=== PATIENT | female | born 1955 | race Caucasian/White ===

== ENCOUNTER 2018-07-05 09:00 | Inpatient (IN) | payer OTHER ==
[2018-07-02 16:47] VITALS: BMI 22.7
[~2018-07-05] VITALS: Ht 154.9 cm; Wt 52.5 kg
[2018-07-05] VITALS (22 sets, daily range): BP systolic 102–150; BP diastolic 59–86; PULSE 58–80; RESP 13–20; Ht 154.9 cm; Wt 52.5 kg
[~2018-07-05 09:00] MED LIST: ATOR10TA65; CEFAZOLIN 2 GM/50 ML (PMX) 50 ML IVPB ONE; OMEP20CA16 PO; SOD CHLORIDE 0.9% 1,000 ML IV SCH
[2018-07-05] MEDS ORDERED: LACT1CAP56 PO (09:42)
[2018-07-05] MEDS ORDERED: ACETAMINOPHEN 500 MG TAB PO STA (10:02)
--- NOTE | 2018-07-05 10:54 | PREAC ---
Date/Time of Note Date/Time of Note DATE: 07/05/18 TIME: 10:50 Anesthesia Eval and Record Evaluation Time Pre-Procedure Interview DATE: 07/05/18 TIME: 10:50 Age 63 Sex female NPO: 8 hrs Preoperative diagnosis L breast CA Planned procedure L modified radical breast mastectomy Past Medical History Past Medical History: Includes Cardio: Dyslipidemia Psych: Depression, Anxiety Surgery & Anesthesia Issues No known issue (colonoscopy, cholecystectomy) Meds Anticoagulation: No Beta Verito within 24 hr: No Reason Beta Verito not given: Pt. not on B-Verito Reported Medications Lactobacillus Combo No.11 (Probiotic) 1 Each Cap.sprink, 1 CAP PO DAILY, CAP 07/05/18 Discontinued Reported Medications Atorvastatin Calcium (Atorvastatin Calcium) 10 Mg Tab, TAB 09/13/13 Omeprazole* (Omeprazole*) 20 Mg Capsule.dr, 20 MG PO 09/13/13 Current Medications Sodium Chloride 1,000 ml @ 75 mls/hr [id number] IV Last administered on 07/05/18at 10:09; Admin Dose 75 MLS/HR; Start 07/05/18 at 09:00; Stop 07/05/18 at 22:19 Meds reviewed: Yes Allergies Coded Allergies: meloxicam (Verified Allergy, Severe, DIFFUCLTY SWALLOWING & BREATHING, 07/05/18) PER PT Allergies Reviewed: Yes Labs/Studies Labs Reviewed: Reviewed by anesthesiologist test: N/A Pre-procedure Exam Last vitals Vital Signs Date Temp Pulse Resp B/P (MAP) Pulse Ox O2 O2 Flow FiO2 Time Delivery Rate 07/05/18 97.3 69 18 119/66 98 Room Air 09:54 (83) Airway: Adequate mouth opening, Adequate thyromental dist Mallampati: Mallampati II Teeth: Abnormal (upper dentures *permanent* and can't be removed per pt, lower pre/molars missing) Lung: Normal Heart: Normal ASA Physical Status ASA physical status: 2 Emergency: None Planned Anesthetic General/MAC: LMA Pre-operative Attestations Prior to commencing anesthesia and surgery, the patient was re-evaluated, there was verification of: *The patient's identity *The results of appropriate recent lab work and preoperative vital signs *The above evaluation not changing prior to induction *Anesthetic plan, risk benefits, alternative and complications discussed with patient/family; questions answered; patient/family understands, accepts and wishes to proceed. AYUSH DIANA Jul 05, 2018 10:54
[2018-07-05] MEDS ORDERED: OXYCODONE/ACETAMINOPHEN (5/325) TAB PO PRN ×2 (11:00)
[2018-07-05] MEDS ORDERED: MEPERIDINE 25 MG INJ IV PRN (11:00)
[2018-07-05] MEDS ORDERED: FENTAnyl 50 MCG/ML VIAL IV PRN ×2 (11:00)
[2018-07-05] MEDS ORDERED: HYDROmorphONE 1 MG/5 ML IV SYRINGE IV PRN ×2 (11:00)
[2018-07-05] MEDS ORDERED: ONDANSETRON 4 MG INJ IV PRN ×2 (11:00→13:30)
[2018-07-05] MEDS ORDERED: ALBUTEROL 0.083% (NEB) 2.5 MG/3 ML AMP HHN PRN (11:00)
[2018-07-05] MEDS ORDERED: morphine (1 MG/ML) 10ML SYRINGE IV PRN ×2 (11:00)
[2018-07-05] MEDS ORDERED: LABETALOL HCL 20MG INJ IV PRN (11:00)
[2018-07-05] MEDS ORDERED: DIPHENHYDRAMINE 50 MG INJ IV PRN (11:00)
[2018-07-05] MEDS ORDERED: MIDAZOLAM 1 MG/ML 2 ML INJ ONE (12:05)
[2018-07-05] MEDS ORDERED: METOCLOPRAMIDE 10 MG INJ ONE (12:05)
[2018-07-05] MEDS ORDERED: CEFAZOLIN 1 GM INJ ONE (12:09)
[2018-07-05] MEDS ORDERED: FENTAnyl 50 MCG/ML VIAL ONE (12:09)
[2018-07-05] MEDS ORDERED: ONDANSETRON 4 MG INJ ONE (12:09)
[2018-07-05] MEDS ORDERED: PROPOFOL 20 ML ONE (12:09)
--- NOTE | 2018-07-05 13:07 | SIPON ---
Date/Time of Note Date/Time of Note DATE: 07/05/18 TIME: 13:06 Operative Report Preoperative Diagnosis Invasive cancer left breast Postoperative Diagnosis Same Operation/Procedure Performed Left modified radical mastectomy Surgeon see signature line portfolio assistant Dr Bingham Anesthesia: general Estimated blood loss: 10 - 50 ml's Transfusion Required none Specimen Left breast and axillary contents Grafts/Implants none Complications none LORAINE LONG MD Jul 05, 2018 13:07
[2018-07-05] MEDS ORDERED: morphine 2 MG INJ IV PRN (13:30)
[2018-07-05] MEDS ORDERED: ACETAMINOPHEN 1000MG/100ML IV 100 ML IVPB PRN (13:30)
--- NOTE | 2018-07-05 13:55 | OPR ---
DATE OF OPERATION: 07/05/2018 PREOPERATIVE DIAGNOSIS: Invasive cancer, left breast. POSTOPERATIVE DIAGNOSIS: Invasive cancer, left breast. OPERATION PERFORMED: Left modified radical mastectomy. ANESTHESIA: General. ANESTHESIOLOGIST: Camryn Hutchinson MD. SURGEON: Fran Davis MD HARMONICA MAKER: Pedro Malagon and registered nurse first montez Bueno. INDICATIONS FOR PROCEDURE: The patient is a 63-year-old female who noticed a firm mass in the latera l aspect of her left breast with overlying skin retraction. Workup revealed a poorly differentiated triple negative breast cancer. The patient was not interested in breast conservation surgery and req uested a modified radical mastectomy. She consented and was scheduled for surgery. DESCRIPTION OF PROCEDURE: The patient was brought to the operating theater, placed under general end otracheal tube anesthesia. The left breast and axillary region was prepped and draped in the usual s terile fashion. A planned elliptical incision widely around the nipple areolar complex and the porti on of the skin associated with the tumor was demarcated with marking pen. The incision was then khan ied out with 15 blade scalpel. Subcutaneous tissue was dissected with cautery. Skin edges were then elevated with Allis Benjamin clamps and skin flaps were created using cautery, first superiorly to the clavicle, then medially to sternal border, inferiorly to the inframammary fold and laterally until th e latissimus dorsi muscle was identified throughout its course. Mastectomy then took place from medi al to lateral using cautery at the border of the pectoralis major muscle, the pectoralis minor muscle was identified. Clavipectoral fascia was incised. There were some firm palpable lymph nodes noted, highly suspicious for metastatic disease. Therefore, Dr. Davis proceeded with a level 1, level 2 di ssection. This was accomplished primarily by using the LigaSure device. When adequate zena resecti on had taken place, final connective tissue attachments to the latissimus dorsi muscle were then fernandes sected with cautery. Specimen was removed, oriented and sent for permanent pathologic analysis. The wound was irrigated. Minimal bleeding was controlled with cautery. Two #10 flat Timoteo-Baker drai ns were then brought through the left mid axillary line. One was cut to size and laid within the axi lla, the other was cut to size and laid over the pectoralis major muscle. Both drains were secured i n place with 2-0 nylon sutures in the standard fashion. The skin was then reapproximated with multip le 4-0 Vicryl sutures in interrupted deep dermal fashion, followed by final skin approximation with s kin presley. The patient tolerated the procedure well. The estimated blood loss was approximately 4 0 mL. There were no complications. The patient was transported in stable condition to recovery room where circumferential compression dressing was applied. Dictated By: FRAN DAVIS MD TL/URI Conf#: [id number] DID#: [id number] CC: JALYN NICHOLS; PEDRO MALAGON MD;*EndCC*
[2018-07-05] MEDS: D5W-0.45 NACL + KCL 20 MEQ 1,000 ML IV SCH ×2 (16:34→21:08)
[2018-07-06] VITALS: BP 100/59; PULSE 70; RESP 18
[2018-07-06] MEDS: D5W-0.45 NACL + KCL 20 MEQ 1,000 ML IV SCH ×2 (00:22→13:08)
--- NOTE | 2018-07-06 00:52 | HP ---
DATE OF ADMISSION: 07/05/2018 CHIEF COMPLAINT AND HISTORY OF PRESENT ILLNESS: The patient is a 63-year-old female who noted a firm mass in the lateral aspect of the left breast with overlying skin reaction. The patient underwent s ubsequent workup including biopsy which revealed poorly differentiated triple negative breast cancer. The patient was brought into hospital today and underwent left modified radical mastectomy. The pa tient has significant postoperative pain and is being admitted for evaluation and management. The pa tient denies history of headache. No history of nausea, vomiting. No history of abdominal pain. No history of fever or chills. No history of focal weakness. No history of headache. REVIEW OF SYSTEMS: Other than postoperative pain, rest of review of systems is unremarkable. PAST SURGICAL HISTORY: The patient is status post open cholecystectomy in . FAMILY HISTORY: Mother had ovarian cancer. MEDICATIONS PRIOR TO ADMISSION: None. ALLERGIES: MELOXICAM. PHYSICAL EXAMINATION: GENERAL: Revealed the patient to be awake, alert, fairly oriented. VITAL SIGNS: Temperature 98.2, pulse 61, respirations 18, blood pressure 102/59, O2 saturation 97% o n room air. HEENT: Atraumatic, normocephalic. Conjunctivae and lids are normal. Oropharynx is clear. NECK: No mass. CHEST: Fairly clear. CARDIOVASCULAR: S1, S2 normal. No murmur. ABDOMEN: Soft, nondistended, nontender, no palpable mass or pulsatile mass. EXTREMITIES: No leg edema. Pedal pulses are palpable. SKIN: Without acute rash. NEUROLOGIC: The patient is awake, alert, fairly oriented with no gross focal deficit. LABORATORY DATA: Pending. IMPRESSION: Invasive cancer of left breast, status post left modified radical mastectomy. PLAN: The patient will be admitted on medical floor. The patient will be started on clear liquid di et. This will be advanced as tolerated. For pain control, the patient will be given Tylenol, morphi ne and for [place]. We will use SCD for DVT prophylaxis. Continue IV fluids. If the patient continue s to do well, she will be discharged home tomorrow. We will order CBC and complete metabolic panel. Dictated By: KAYLAN JETT/NTS Conf#: [id number] DID#: [id number] CC: LORAINE LONG MD;*EndCC*
[2018-07-06 04:00] VITALS: BP 92/50; PULSE 60; RESP 18
[2018-07-06 07:37] VITALS: BP 91/58; PULSE 63; RESP 16
--- NOTE | 2018-07-06 08:09 | PAC ---
Date/Time of Note Date/Time of Note DATE: 07/06/18 TIME: 08:09 Post-Anesthesia Notes Post-Anesthesia Note Last documented vital signs Vital Signs Date Temp Pulse Resp B/P (MAP) Pulse Ox O2 O2 Flow FiO2 Time Delivery Rate 07/06/18 98.4 63 16 91/58 (69) 96 Room Air 07:37 07/05/18 2.0 14:36 Activity: WNL Respiratory function: WNL Cardiovascular function: WNL Mental status: Baseline Pain reasonably controlled: Yes Hydration appropriate: Yes Nausea/Vomiting absent: No STEPHEN VASQUES MD Jul 06, 2018 08:09
[2018-07-06] MEDS: HYDROCODONE/APAP (5/325) TAB PO PRN ×2 (09:40→17:07)
[2018-07-06 14:32] VITALS: BP 103/65; PULSE 68; RESP 18
--- NOTE | 2018-07-06 15:34 | PN ---
DATE: 07/06/2018 Postop day #1 status post left breast modified radical mastectomy. SUBJECTIVE: No specific complaint. Patient has been under control for pain with p.o. medication. N o chills, no fever. OBJECTIVE: GENERAL: Alert, awake, oriented x3. VITAL SIGNS: Temperature maximum 98.4, heart rate 63, respiration 18, blood pressure 103/65, saturat ion 97% room air. LABORATORY DATA: Labs, electrolytes and hematology within normal limits. I's and O's: 2 Timoteo-Pr att drains in place. They have drained respectively, 70 and 15 mL from the time of operation I think 7:00 in the morning. The color is serosanguineous, slightly bloody. PLAN: The patient can be discharged home to follow up by Dr. Davis in his office as per schedule. A lso, instruction was given to the patient's daughter with the care of the Timoteo-Baker drains, how t o drain them, to measure them and the write them down on a piece of paper and when she goes to Dr. Juanita alejandra' office to take it with her, so they know how much have been draining. Dictated By: MAGY MALAGON MD PS/NTS Conf#: [id number] DID#: [id number]
--- NOTE | 2018-07-06 22:04 | DS ---
DATE OF ADMISSION: 07/05/2018 DATE OF DISCHARGE: 07/06/2018 DISCHARGE DIAGNOSIS: Invasive cancer of the left breast status post left modified radical mastectomy . FOLLOWUP: The patient is to follow up with Dr. Long as an outpatient. WILIAN drain care has been expla ined. DISCHARGE MEDICATION: Tylenol 650 q.6h. p.r.n. or Motrin 400 mg q.6h. p.r.n. REASON FOR ADMISSION: The patient is a 63-year-old female who was diagnosed with poorly differentiat ed left breast cancer which was triple negative. The patient was brought into the hospital yesterday and underwent a left modified radical mastectomy. The patient had significant postoperative pain an d was admitted for further evaluation and management. HOSPITAL COURSE: The patient was admitted with diagnosis of breast cancer status post surgery. The pain was controlled with Tylenol, [place] and IV morphine. The patient since this morning has been doi ng very well and has been ambulating. No reported nausea or vomiting. No reported shortness of cami th. No reported resting leg pain. PHYSICAL EXAMINATION: VITAL SIGNS: Temperature 98.1, pulse 68, respirations 18, blood pressure 103/65, O2 saturation 97% o n room air. HEENT: No eye discharge or redness. Conjunctivae are normal. Oropharynx is clear. NECK: No mass. CHEST: Fairly clear. CARDIOVASCULAR: S1 and S2 normal. No murmur. ABDOMEN: Soft, nondistended, nontender. EXTREMITIES: No leg edema. NEUROLOGIC: The patient is awake, alert, fairly oriented with no gross focal deficit. LABORATORY DATA: Labs done this morning, WBC 9, hemoglobin 13.4, platelet 296. Chem 18: Sodium 141 , potassium 4.1, BUN 5, creatinine 0.5. Liver enzymes unremarkable. CONDITION ON DISCHARGE: Stable. DIET: Regular. Plan of care was discussed with the patient's family. Dictated By: KAYLAN JETT/NTS Conf#: [id number] DID#: [id number] CC: LORAINE LONG MD;*EndCC*
== END 2018-07-06 19:10 | disposition home or self-care (01) | DRG 583 ==
LOC: SDS 09:00 → REC 13:09 → MS1 15:25
PROVIDERS: ADMIT Surgery Surgical Oncology; ATTEND Surgery Surgical Oncology
PROC: 0HBU0ZZ Excision of Left Breast, Open Approach (ICD-10-PCS; principal; 2018-07-05 12:30)
DX: C50.912 Malignant neoplasm of unspecified site of left female breast (principal); E78.5 Hyperlipidemia, unspecified; F41.8 Other specified anxiety disorders; Z17.0 Estrogen receptor positive status [ER+]
CPT/HCPCS: 71045; 80053; 85025; 88307; 93005; J0690; J1170; J2175; J2250; J2270; J2405; J2765; J3010; J3480

== ENCOUNTER 2018-08-19 07:34 | Day surgery (SDC) | payer OTHER ==
[~2018-08-19] VITALS: Ht 154.9 cm; Wt 51.7 kg
[2018-08-19] VITALS (10 sets, daily range): BP systolic 95–125; BP diastolic 57–75; PULSE 66–80; RESP 10–21; Ht 154.9 cm; Wt 51.7 kg
[~2018-08-19 07:34] MED LIST changes: -ATOR10TA65; -CEFAZOLIN 2 GM/50 ML (PMX) 50 ML IVPB ONE; +LACT1CAP56 PO; -OMEP20CA16 PO; -SOD CHLORIDE 0.9% 1,000 ML IV SCH
[2018-08-19] MEDS ORDERED: POLYMYXIN/BACITRACIN 1L IRRIG IRR ONE (08:00)
[2018-08-19] MEDS ORDERED: SOD CHLORIDE 0.9% 1,000 ML IV SCH (08:00)
[2018-08-19] MEDS ORDERED: CEFAZOLIN 1 GM/50 ML (PMX) 50 ML IVPB ONE ×2 (08:00→09:59)
[2018-08-19] MEDS ORDERED: LIDOCAINE 1%/EPI (1:100,000) (MDV) 20 ML ONE (09:45)
[2018-08-19] MEDS ORDERED: DIPHENHYDRAMINE 50 MG INJ ONE (09:45)
[2018-08-19] MEDS ORDERED: HEPARIN 1000 UNITS/ML 10 ML INJ ONE (09:45)
[2018-08-19] MEDS ORDERED: FENTAnyl 50 MCG/ML VIAL ONE (09:45)
--- NOTE | 2018-08-19 11:51 | HPN ---
Date/Time of Note Date/Time of Note DATE: 08/19/18 TIME: 11:51 Interval H&P Admission Note Pt. seen H&P reviewed: No system changes DIANA ESPINAL MD Aug 19, 2018 11:51
== END 2018-08-19 14:04 | disposition home or self-care (01) ==
LOC: SDS 07:34
PROVIDERS: ATTEND Internal Medicine Hematology & Oncology
DX: C50.912 Malignant neoplasm of unspecified site of left female breast (principal); E78.5 Hyperlipidemia, unspecified
CPT/HCPCS: 36561; 76942; C1788; J0690; J1200; J1644; J3010; Z7610